=== PATIENT | female | born 1950 | race Caucasian/White ===

== ENCOUNTER → 2018-02-22 | Outpatient (CLI) | payer MEDICARE ==
[~2018-02-22] MED LIST: ALENDRONATE SOD70 MG PO; ATORVASTATIN CA10 MG PO; CALTRATE-600 W1 EAC1 PO; GLIMEPIRIDE2 MG PO; LISINOPRIL10 MG PO; METFORMIN HCL1000 MG PO; METOPROLOL SUCC25 MG PO; NORCO 7.5-3251 EACH PO; PROMETHAZINE HC25 M1 PO
--- NOTE | 2018-02-22 14:30 | Diagnostic Imaging Report ---
PROCEDURE:ULTRASOUND GUIDANCE FOR PROCEDURE COMPARISON:None. INDICATIONS:LT PAROTID MASS CONCLUSION:Please see previously dictated report under final aspiration performed same date. Kamaljit Aiken M.D. Dictated by: Kamaljit Aiken M.D. on 02/22/2018 at 14:32 Electronically approved by: Kamaljit Aiken M.D. on 02/22/2018 at 14:32
--- NOTE | 2018-02-22 14:30 | Diagnostic Imaging Report ---
PROCEDURE:FINE NEEDLE ASPIRATION LEFT PAROTID MASS COMPARISON:None. INDICATIONS:LT PAROTID MASS FINDINGS: Sagittal and longitudinal grayscale and color Doppler images of the left parotid were obtained, which showed a 1.4 x 1.2 x 1.2 cm relatively well-circumscribed, hypoechoic mass in the left parotid gland, without significant internal or peripheral vascularity. The left face/neck was prepped and draped in sterile fashion after the procedure was explained and informed consent was obtained. Lidocaine 1% was used for local anesthesia. Using ultrasound guidance, 5 passes were performed on the above-mentioned mass utilizing 25 gauge needles and 10 cc syringes. Samples were accessed as adequate by Pathology. The patient tolerated the procedure well and there were no immediate complications. CONCLUSION: 1. Successful ultrasound-guided fine needle aspiration biopsy of 1.4 cm left parotid mass. Kamaljit Aiken M.D. Dictated by: Kamaljit Aiken M.D. on 02/22/2018 at 14:32 Electronically approved by: Kamaljit Aiken M.D. on 02/22/2018 at 14:32
== END ==
LOC: US 11:45
PROVIDERS: ATTEND Otolaryngology
DX: K11.9 Disease of salivary gland, unspecified (principal)
CPT/HCPCS: 10022; 76942; 88112; 88172; 88173; 88305

== ENCOUNTER 2018-05-03 05:03 | Observation (INO) | payer MEDICARE ==
[2018-04-28 15:17] LABS: BASOPHILS # (AUTO) 0.1 (0.0-0.1); BASOPHILS % 0.8 % (0.0-1.0); EOSINOPHILS # (AUTO) 0.3 (0.0-0.4); EOSINOPHILS % 3.4 % (0.0-6.0); HEMATOCRIT 39.5 % (34.2-44.1); HEMOGLOBIN 13.2 g/dL (12.0-16.0); LYMPHOCYTES # (AUTO) 2.5 (1.0-3.2); LYMPHOCYTES % 28.4 % (18.0-39.1); MEAN CORPUSCULAR HEMOGLOBIN 29.1 pg (28-32); MEAN CORPUSCULAR HGB CONC 33.4 g/dL (31-35); MEAN CORPUSCULAR VOLUME 87.2 fL (81-99); MONOCYTES # (AUTO) 0.6 (0.2-0.8); MONOCYTES % 6.9 % (4.4-11.3); NEUTROPHILS # (AUTO) 5.2 (2.1-6.9); NEUTROPHILS % 59.9 % (38.7-80.0); PLATELET COUNT 295 x10e3/uL (140-360); RED BLOOD COUNT 4.53 x10e6/uL (3.6-5.1); RED CELL DISTRIBUTION WIDTH 12.5 % (11.7-14.4)
[2018-04-28 15:30] LABS: BLOOD UREA NITROGEN 16 mg/dL (7-26); BUN/CREATININE RATIO 21 (6-25); CALCIUM 10.4 mg/dL (8.4-10.2); CARBON DIOXIDE 28 mmol/L (22-29); CHLORIDE 101 mmol/L (98-107); CREATININE, SERUM 0.78 mg/dL (0.57-1.11); EST GLOMERULAR FILTRATION RATE > 60 ML/MIN (60-); GLUCOSE 125 mg/dL (74-118); SODIUM 142 mmol/L (136-145)
--- NOTE | 2018-04-28 15:44 | Diagnostic Imaging Report ---
PROCEDURE: Frontal and lateral views of the chest. COMPARISON: Patients [facility], DX, CHEST SINGLE (NOT PORTABLE), 06/05/2013, 9:27. INDICATIONS: PRE OP PAROTID MASS EXCTOMY a FINDINGS: Lines/tubes: None. Lungs: The lungs are well inflated. 2-3 mm nodular densities projecting in the right lower lung on the frontal view likely represent calcified granulomas. There is no evidence of pneumonia or pulmonary edema. Pleura: There is no pleural effusion or pneumothorax. Heart and mediastinum: Cardiac silhouette is unremarkable. Pulmonary vasculature is normal. Tortuous aorta. Bones: No acute bony abnormality. A well-corticated 5 mm radiopaque density projecting in the right acromiohumeral interval may represent a loose body. IMPRESSION: 1. No acute cardiopulmonary abnormalities. Kamaljit Aiken M.D. Dictated by: Kamaljit Aiken M.D. on 04/28/2018 at 15:49 Electronically approved by: Kamaljit Aiken M.D. on 04/28/2018 at 15:49
[~2018-05-03] VITALS: Ht 157.5 cm; Wt 104.3 kg
[~2018-05-03 05:03] MED LIST changes: +ASPIR 8181 MG PO; +LOSARTAN POTASS25 MG PO; +MONTELUKAST SOD10 MG PO; +MULTI-VITAMIN1 EACH PO; +RANITIDINE HCL150 MG PO
[2018-05-03] MEDS ORDERED: SODIUM CHLORIDE 0.9% INJ 10 ML VIAL ONE (06:33)
[2018-05-03] MEDS ORDERED: EPINEPHRINE HCL INJ 1 MG/ML AMP ONE (06:33)
--- NOTE | 2018-05-03 10:49 | Operative Report ---
DATE OF PROCEDURE: May 03, 2018 PREOPERATIVE DIAGNOSIS: Left parotid gland mass. 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 PROCEDURE: Left superficial parotidectomy with preservation of facial nerve using nerve integrity monitor (NIM). SIGNIFICANT FINDINGS: Frozen section analysis reveals pleomorphic adenoma. PRECISION ASSEMBLER BENCH: Tonia Will. ANESTHESIA: General endotracheal tube anesthesia. SPECIMEN REMOVED: The inferior portion of the left superficial parotid gland. ESTIMATED BLOOD LOSS: 40 mL. COMPLICATIONS: None. INDICATIONS: The patient is a 67-year-old white female with a 4-month history of a nontender mass in the left parotid gland. Patient believes that the mass is enlarging. Physical exam revealed a 2 to 3 cm mass in the left parotid gland. CT of the neck performed on February 08, 2018, revealed a 1.5 cm circumscribed mass in the superficial lobe of the left parotid gland with no associated lymphadenopathy. Ultrasound-guided FNA biopsy was suggestive of pleomorphic adenoma. On examination, there is a 2 to 3 cm nontender mass in the left parotid gland. She is scheduled for left superficial (possible total) parotidectomy with preservation of facial nerve with nerve integrity monitor (NIM) for the treatment of left parotid gland mass. Risks and complications of the procedure were thoroughly discussed with the patient, and they include infection, bleeding, scarring, failure to improve, need for additional operations, possibility of malignancy and need for further treatment, damage to the facial nerve resulting in permanent facial paralysis, sweating of the face when eating, hematoma requiring further surgery, drainage of saliva causing chronic drainage, chronic pain, numbness of the ear lobe, poor cosmetic appearance of the incision and the surgical site, need for blood transfusions, damage to surrounding nerves, blood vessels and muscles. She fully understands and gives consent. PROCEDURE: The patient was taken to the operating room and placed supine on the operating table where general anesthesia was achieved through orotracheal intubation. Ancef was administered. Injection with 10 mL of 1:100,000 epinephrine without lidocaine was injected along the planned left parotidectomy surgical area. The electrodes for the nerve integrity monitor were then inserted, including the ground electrodes in the chest as well as electrodes lateral to the left eye and left oral commissure. The face was then prepped and draped in the usual sterile fashion with a clear drape to allow full visualization of the left side of the face to check for facial movement. Incision was then made on the left side for the parotidectomy in a vertical fashion in the preauricular area extending inferiorly past the earlobe, bending posteriorly and curving anteriorly along a skin crease 2 fingerbreadths inferior to the mandible. The incision was made with a #15 blade. The lateral fascia of the parotid gland was then identified, and the anterior skin flap was elevated in this plane. Posterior skin flap was also elevated, and the skin flaps were then held in place with stick ties. Following this, a wide trough was then dissected atraumatically, starting inferiorly along the anterior border of the sternocleidomastoid muscle. This was extended superiorly until it joined the tragus and the preauricular area. Blunt dissection in this area identified the main trunk of the facial nerve, which was confirmed with the probe connected to the nerve integrity monitor. The facial nerve was then dissected anteriorly until it branched into the superior and inferior trunks. The inferior branches were then dissected anteriorly. The mass was in the inferior portion of the gland. The superior trunk was not dissected, but every branch of the inferior trunk was dissected anteriorly and kept in full view. No damage was seen to any of the facial nerve branches at the end of the case. The inferior portion of the parotid gland was removed and sent for permanent section analysis. The facial nerve branches were then dissected off of the mass, which was in the mid portion of the parotid gland. The mass was sent for frozen section analysis, which revealed pleomorphic adenoma. Stimulation of the main trunk at the conclusion of the removal of the parotid mass revealed full facial function on the left side. None of the facial branches were seen to be damaged. Thorough irrigation was then performed. A GUNNER drain was then inserted through a separate stab incision posteriorly and was secured with drain stitch. The wound was then repaired with interrupted 4-0 Monocryl in a subcuticular fashion followed by Dermabond. Patient was awakened in the operating room, extubated and taken to the recovery room in good condition. Job#: [id number] BRODY VIRGEN
[2018-05-03] MEDS ORDERED: HYDROCODONE/APAP 10MG-325MG TAB PO PRN ×2 (11:15→11:45)
[2018-05-03 11:42] VITALS: BP 131/70
[2018-05-03] MEDS ORDERED: ALENDRONATE SODIUM 70 MG TAB PO SCH (12:00)
[2018-05-03] MEDS ORDERED: D5.45%NS/KCL 20MEQ 1,000 ML IV SCH (12:00)
[2018-05-03] MEDS: D5.45%NS/KCL 20MEQ 1,000 ML IV SCH ×2 (12:33→19:50)
[2018-05-03 12:37] VITALS: BP 131/70
[2018-05-03] MEDS: CEFAZOLIN SOD 1 GM VIAL IV SCH ×2 (13:12→22:59)
[2018-05-03] MEDS ORDERED: CEFAZOLIN SOD 1 GM in WATER STERILE 10ML VIAL 10 ML IV SCH (14:00)
[2018-05-03] MEDS ORDERED: NON-FORMULARY MEDICATION (Metformin Hcl 1,000 MG) PO SCH ×2 (17:00)
[2018-05-03] MEDS ORDERED: METFORMIN HCL 500 MG TAB PO SCH (17:00)
[2018-05-03] MEDS ORDERED: SEVOFLURANE INHAL SOLN 250 ML PEN BTL ONE (17:56)
[2018-05-03] MEDS ORDERED: PROPOFOL IV EMULSION 10 MG/ML 20 ML VIAL ONE (17:56)
[2018-05-03] MEDS ORDERED: GLYCOPYRROLATE INJ 1MG/ 5 ML SYR ONE (17:56)
[2018-05-03] MEDS ORDERED: NEOSTIGMINE 5 MG/5ML SYR ONE (17:56)
[2018-05-03] MEDS ORDERED: DEXAMETHASONE SOD PHOS INJ 4 MG/ML VIAL ONE (17:56)
[2018-05-03] MEDS ORDERED: ROCURONIUM BROMIDE 10 MG/ML 5ML VIAL ONE (17:56)
[2018-05-03] MEDS ORDERED: CEFAZOLIN SOD 1 GM VIAL ONE (17:56)
[2018-05-03] MEDS ORDERED: LIDOCAINE HCL 2% LOCAL INJ 5 ML SDV VIAL INJ ONE (17:56)
[2018-05-03] MEDS ORDERED: ACETAMINOPHEN 1000 MG/100 ML IV ONE (17:56)
[2018-05-03] MEDS ORDERED: MIDAZOLAM HCL 2 MG/2 ML VIAL ONE (18:06)
[2018-05-03] MEDS ORDERED: FENTANYL CITRATE/PF 100MCG/2 ML INJ ONE (18:06)
[2018-05-03 18:41] VITALS: BP 145/84
[2018-05-03 20:00] VITALS: BP 128/61
[2018-05-03] MEDS ORDERED: ATORVASTATIN 10 MG TAB PO SCH (21:00)
[2018-05-03] MEDS ORDERED: NON-FORMULARY MEDICATION (Ranitidine Hcl 150 MG) PO SCH ×2 (21:00)
[2018-05-04] VITALS: BP 121/60
[2018-05-04 04:00] VITALS: BP 140/65
[2018-05-04] MEDS: CEFAZOLIN SOD 1 GM VIAL IV SCH (06:35)
[2018-05-04 08:17] VITALS: BP 135/70
[2018-05-04] MEDS ORDERED: FAMOTIDINE 20 MG TAB PO SCH (09:00)
[2018-05-04] MEDS ORDERED: LOSARTAN POTASSIUM 25 MG TAB PO SCH ×2 (09:00)
[2018-05-04] MEDS ORDERED: VIT D3 PO SCH ×2 (09:00)
[2018-05-04] MEDS ORDERED: METOPROLOL SUCCINATE 25 MG TAB XL PO SCH ×2 (09:00)
[2018-05-04] MEDS ORDERED: MINERALS PO SCH ×2 (09:00)
[2018-05-04] MEDS ORDERED: VIT D PO SCH ×2 (09:00)
[2018-05-04] MEDS ORDERED: GLIMEPIRIDE 2 MG TAB PO SCH ×2 (09:00)
[2018-05-04] MEDS ORDERED: OYST-CAL-D 500MG TABLET PO SCH (09:00)
[2018-05-04] MEDS ORDERED: MULTIVITAMINS/MINERALS TAB PO SCH ×2 (09:00)
[2018-05-04] MEDS ORDERED: ASPIRIN 81 MG CHEW TAB PO SCH ×2 (09:00)
[2018-05-04] MEDS ORDERED: ATORVASTATIN 10 MG TAB PO SCH ×2 (09:00)
[2018-05-04] MEDS ORDERED: [UNRECOGNIZED DRUG - OTHER] PO SCH ×2 (09:00)
[2018-05-04] MEDS ORDERED: MONTELUKAST SODIUM 10 MG TAB PO SCH ×2 (09:00)
[2018-05-04] MEDS ORDERED: CALCIUM CARB PO SCH ×2 (09:00)
[2018-05-09] MEDS ORDERED: ALENDRONATE SODIUM 70 MG TAB PO SCH (12:08)
== END 2018-05-04 09:50 | disposition home or self-care (01) ==
LOC: OR 05:03 → PACU V 10:27 → MED/SURG 10:59
PROVIDERS: ADMIT Otolaryngology; ATTEND Otolaryngology
DX: D11.0 Benign neoplasm of parotid gland (principal); E11.9 Type 2 diabetes mellitus without complications; J45.909 Unspecified asthma, uncomplicated; I10 Essential (primary) hypertension; K21.9 Gastro-esophageal reflux disease without esophagitis
CPT/HCPCS: 36415 ×3; 42415; 71046; 80048; 82948 ×2; 85025; 88305; 88331; 93005; 96360; G0378 ×2; J0171; J0690 ×2; J1100; J2001; J2250; J3490